=== PATIENT | female | born 1970 ===

== ENCOUNTER 2016-06-26 14:45 | Outpatient (CLI) | payer BC ==
--- NOTE | 2016-06-26 15:30 | DIAGNOSTIC IMAGING REPORT ---
PROCEDURE: CT HEAD WITHOUT CONTRAST INDICATION: HEAD TRAUMA TECHNIQUE: Axial CT images were acquired through the head. Coronal and sagittal reformations were created. COMPARISON: None. FINDINGS: No intracranial hemorrhage or extraaxial fluid collections. Ventricles are normal in size, shape and position. There is no mass, mass effect or midline shift. The shaw-white matter differentiation is normal. There is no edema. The calvarium is intact. The paranasal sinuses and mastoid air cells are normally aerated. The extracranial soft tissues and orbits are normal. IMPRESSION: 1. No CT evidence of acute intracranial process. All CT scans at this facility use dose modulation, iterative reconstruction, and/or weight-based dosing when appropriate to reduce radiation dose to as low as reasonably achievable.
== END 2016-06-26 23:00 ==
LOC: CT SRH 14:45
DX: S09.90XA Unspecified injury of head, initial encounter (principal)

== ENCOUNTER 2016-07-03 11:35 | Outpatient (CLI) | payer BC | END 2016-07-03 23:00 | LOC: LAB SRH 11:35 | DX: E55.9 Vitamin D deficiency, unspecified (principal); Z13.1 Encounter for screening for diabetes mellitus; Z13.6 Encounter for screening for cardiovascular disorders; Z13.29 Encounter for screening for other suspected endocrine disorder | CPT/HCPCS: 90074; 90100; 91096; 91286; 92690; 93140; 95059 ==